=== PATIENT | female | born 1935 | race Caucasian/White ===

== ENCOUNTER 2021-03-10 23:26 | Inpatient (IN) | payer MEDICARE, OTHER ==
[~2021-03-10] VITALS: Ht 154.9 cm; Wt 49.0 kg
[~2021-03-10 23:26] MED LIST: ASPIR 8181 MG PO; ASPIRIN CHEWABL81 MG PO; CEFDINIR250 MG/5 M PO; CLARITIN10 MG PO; DIFLUCAN 100MG100 MG NG; DUONEB 2.5-0.5M1 AMP NEB; ELIQUIS5 MG NG; JEVITY 1.2 CA1000 ML JT; JEVITY 1.5 CA1500 ML JT; LINZESS145 MCG PO; LOPRESSOR25 MG NG; LOPRESSOR25 MG PO; MELATONIN5 M2 PO; NORVASC2.5 MG PO; RANITIDINE15 MG/1 ML PO; SEROQUEL 25MG T25 MG PO; SULFATRIM PEDI473 ML PO; TRAZODONE 50MG50 MG PO; VALPROIC ACID1 ML PO
[2021-03-11 01:43] LABS: AMPHETAMINES NEGATIVE (NEGATIVE); BARBITURATES NEGATIVE (NEGATIVE); BILIRUBIN NEGATIVE (NEGATIVE); BLOOD NEGATIVE Ery/uL (NEGATIVE); CLARITY CLEAR (CLEAR); COLOR YELLOW (YELLOW); ECSTASY (MDMA) NEGATIVE (NEGATIVE); GLUCOSE (U) NORMAL (NORMAL); LEUKOCYTES NEGATIVE Leu/uL (NEGATIVE); MARIJUANA (THC) NEGATIVE (NEGATIVE); METHADONE NEGATIVE (NEGATIVE); NITRITE NEGATIVE (NEGATIVE); OPIATES NEGATIVE (NEGATIVE); OXYCODONE NEGATIVE (NEGATIVE); PROTEIN 1+ mg/dL (NEGATIVE); SPECIFIC GRAVITY >=1.030 (1.001-1.030); UROBILINOGEN 0.2 mg/dL (0.2-1.0)
[2021-03-11 01:50] LABS: AMORPHOUS URATES CRYSTALS LARGE; BACTERIA TRACE; SQUAMOUS EPITHELIAL CELLS RARE
[2021-03-11 02:18] LABS: ALBUMIN 3.2 g/dL (3.4-5.0); BILIRUBIN - TOTAL 0.7 mg/dL (0.2-1.0); CREATININE 1.78 mg/dL (0.51-0.95); GLOBULIN (CALCULATION) 3.5 g/dL; POTASSIUM 4.7 mmol/L (3.5-5.1); TOTAL PROTEIN 6.7 g/dL (6.4-8.2)
[2021-03-11 02:28] LABS: BASOPHIL 0.2 % (0-2); EOSINOPHIL 0 % (0-7); HCT 43.2 % (37.0-47.0); HGB 14.7 g/dl (12.5-16.0); LYMPHOCYTE 4.8 % (15-48); MCH 32.7 pg (25.0-31.0); MCV 96.2 fL (78.0-100.0); MONOCYTE 5.3 % (0-12); MPV 9.8 fL (6.0-9.5); NEUTROPHIL 89.3 % (41-80); NRBC 0; PLT 286 K/uL (150-400); RBC 4.49 M/uL (4.20-5.40); RDW 13.1 % (11.5-14.0); WBC 16.9 K/uL (4.0-10.5)
[2021-03-11 02:40] LABS: INR 1.11 (0.9-1.2); PROTHROMBIN TIME 13.6 SECONDS (11.4-13.6)
[2021-03-11 03:02] LABS: LACTIC ACID 5.9 mmol/L (0.4-1.9)
[2021-03-12 06:12] LABS: BASOPHIL 0.3 % (0-2); EOSINOPHIL 0.7 % (0-7); HCT 31.5 % (37.0-47.0); LYMPHOCYTE 12.3 % (15-48); MCH 32.9 pg (25.0-31.0); MCHC 34.9 g/dL (32.0-36.0); MCV 94.3 fL (78.0-100.0); MONOCYTE 8.3 % (0-12); MPV 9.8 fL (6.0-9.5); NEUTROPHIL 78.2 % (41-80); NRBC 0; PLT 199 K/uL (150-400); RBC 3.34 M/uL (4.20-5.40); RDW 13.1 % (11.5-14.0); WBC 8.8 K/uL (4.0-10.5)
[2021-03-12 07:06] LABS: ALBUMIN 2.4 g/dL (3.4-5.0); CREATININE 1.04 mg/dL (0.51-0.95); GLOBULIN (CALCULATION) 2.8 g/dL; POTASSIUM 2.9 mmol/L (3.5-5.1); TOTAL PROTEIN 5.2 g/dL (6.4-8.2)
[2021-03-12 07:07] LABS: BILIRUBIN - TOTAL 0.8 mg/dL (0.2-1.0); MAGNESIUM 1.7 mg/dL (1.8-2.4)
[2021-03-13 05:43] LABS: BASOPHIL 0.3 % (0-2); EOSINOPHIL 1.1 % (0-7); HCT 29.7 % (37.0-47.0); HGB 10.1 g/dl (12.5-16.0); MCH 32.5 pg (25.0-31.0); MCV 95.5 fL (78.0-100.0); MONOCYTE 8.3 % (0-12); MPV 9.8 fL (6.0-9.5); NEUTROPHIL 76.7 % (41-80); NRBC 0; PLT 194 K/uL (150-400); RBC 3.11 M/uL (4.20-5.40); RDW 13.2 % (11.5-14.0); WBC 7.1 K/uL (4.0-10.5)
[2021-03-13 06:53] LABS: CREATININE 0.78 mg/dL (0.51-0.95)
[2021-03-13 06:54] LABS: ALBUMIN 2.2 g/dL (3.4-5.0); BILIRUBIN - TOTAL 0.7 mg/dL (0.2-1.0); POTASSIUM 3.4 mmol/L (3.5-5.1); TOTAL PROTEIN 5.2 g/dL (6.4-8.2)
[2021-03-13 06:55] LABS: PHOSPHORUS 1.5 mg/dL (2.6-4.7)
[2021-03-14 06:17] LABS: BASOPHIL 0.3 % (0-2); HCT 29.2 % (37.0-47.0); HGB 10.4 g/dl (12.5-16.0); LYMPHOCYTE 15.9 % (15-48); MCH 33.2 pg (25.0-31.0); MCHC 35.6 g/dL (32.0-36.0); MCV 93.3 fL (78.0-100.0); MONOCYTE 11.8 % (0-12); MPV 9.6 fL (6.0-9.5); NEUTROPHIL 68.5 % (41-80); NRBC 0; PLT 195 K/uL (150-400); RBC 3.13 M/uL (4.20-5.40); RDW 12.9 % (11.5-14.0); WBC 6.6 K/uL (4.0-10.5)
[2021-03-14 07:15] LABS: ALBUMIN 2.1 g/dL (3.4-5.0); BILIRUBIN - TOTAL 0.9 mg/dL (0.2-1.0); CREATININE 0.72 mg/dL (0.51-0.95); GLOBULIN (CALCULATION) 2.6 g/dL; MAGNESIUM 1.6 mg/dL (1.8-2.4); PHOSPHORUS 1.6 mg/dL (2.6-4.7); POTASSIUM 4.4 mmol/L (3.5-5.1); TOTAL PROTEIN 4.7 g/dL (6.4-8.2)
[2021-03-15 05:09] LABS: BASOPHIL 0.6 % (0-2); EOSINOPHIL 6.4 % (0-7); HCT 31.5 % (37.0-47.0); HGB 10.9 g/dl (12.5-16.0); LYMPHOCYTE 17.1 % (15-48); MCH 32.5 pg (25.0-31.0); MCHC 34.6 g/dL (32.0-36.0); MONOCYTE 10.7 % (0-12); MPV 9.6 fL (6.0-9.5); NEUTROPHIL 64.7 % (41-80); NRBC 0; PLT 235 K/uL (150-400); RBC 3.35 M/uL (4.20-5.40); WBC 6.3 K/uL (4.0-10.5)
[2021-03-15 05:39] LABS: CREATININE 0.7 mg/dL (0.51-0.95); POTASSIUM 4.6 mmol/L (3.5-5.1)
[2021-03-15 05:40] LABS: ALBUMIN 2.1 g/dL (3.4-5.0); BILIRUBIN - TOTAL 0.6 mg/dL (0.2-1.0); GLOBULIN (CALCULATION) 3.1 g/dL; MAGNESIUM 2.4 mg/dL (1.8-2.4); PHOSPHORUS 4.4 mg/dL (2.6-4.7); TOTAL PROTEIN 5.2 g/dL (6.4-8.2)
--- NOTE | 2021-03-16 09:34 | NUR ---
RD consult for EN support vis DHT. NG placed 03/15; tube pulled out by patient therefore unable to start TF. Discussed events with LAKESHA Melendrez; [facility]. will follow.
--- NOTE | 2021-03-16 10:00 | NUR ---
0930 CALLED INTO THE ROOM BY FAMILY AND REPORTS THAT THE PATIENT HAS PULLED OUT THE FEEDING TUBE FROM HER NOSE. 35 DR. CARMICHAEL WAS NOTIFED AND REQUEST THIS NURSE TO CALL THE POA AND LET THEM KNOW ABOUT THE TUBE BEING PULLED OUT AND WHAT OTHER INSTUCTIONS THEY WOULD LIKE TO BE DONE. 939 MARLEN GONZALEZ THE POA WAS NOTIFED AND EXPLAINED THAT THE FEEDING TUBE HAD BEEN PULLED PUT. MS. GONZALEZ WOULD LIKE TO TALK TO ROXANNE MILAN THE CAREGIVER FOR THE PATIENT AND THE NURSE ON A 3 WAY CALL. 45 MARLEN GONZALEZ AND ROXANNE MILAN AND THE NURSE IN THE ROOM ON A THREE WAY CALL, THEY DISCUSSED THE REPLACING THE FEEDING TUBE AND THEY WANT IT BACK IN AND TO BE SENT HOME WITH IT. 50 DR. CARMICHAEL NOTIFED OF THE PLAN TO REPLACE THE TUBE. WILL WRITE THE ORDER TO REPLACE THE FEEDING TUBE AND TO BE DISCHARGED.
--- NOTE | 2021-03-16 14:47 | NUR ---
FAMILY REQUESTS [facility] [place]. TC TO [place] WITH CARETENDERS, ADVISED HER THAT [facility] [address] WITH HER CAREGIVER, ROXANNE OLIVEIRA PHONE NUMBER IS [phone]. PT. HAS HER FEEDING PUMP AND FEEDS.
--- NOTE | 2021-03-16 16:46 | NUR ---
1513 DOUBOFF FEEDING TUBE WAS REPLACED TO THE LEFT NARE WITHOUT ANY PROBLEMS. SECURED IN PLACE AND DR. CARMICHAEL WAS NOTIFED TO ORDER THE KUB. 1520 KUB HAS BEEN DONE WAITING THE RESULTS OF PLACEMENT OF THE FEEDING TUBE. 1545 FEDDING TUBE IS IN THE CORRECT PLACE DR. CARMICHAEL NOTIFED OF THE RESULTS. 1551 WIRE WAS REMOVED AND FLUSHED WITH 30 ML TAP WATER WITH OUT ANY PROBLEMS. PLACEMENT STILL IN THE CORRECT POSITION. DR. CARMICHAEL NOTIFED NEW ORDERS TO START TUBE FEEDINGS. JEVITY 1.5 AT 10 ML FOR 8 HOURS THEN INCREASED BY 10 ML EVERY 8 HOURS UNTIL A GOAL OF 40ML HR IS REACHED.
[2021-03-16] MEDS ORDERED: AUGMENTIN 875-1 EACH PO (17:21)
--- NOTE | 2021-03-16 18:54 | NUR ---
1834 DISCHARGE INSTRUCTION WHERE GIVEN VIA TELEPHONE TO ROXANNE MILAN AND AND MARLEN HERRERA). BOTH VOICED UNDERSTANDING OF THE DISCHARGE INSTRUCTIONS AND THE TEACHING INFORMATION ABOUT THE NEW NEDICATIONS AND CARETNEDERS NOTIFED OF THE DISCHARGE HOME.
== END 2021-03-16 23:59 | disposition home health service (06) | DRG 871 ==
LOC: FER 23:26 → FTCU 03-11 05:39 → FICU 03-11 05:39 → FTCU 03-14 09:32
PROVIDERS: Emergency Medicine; Internal Medicine; ADMIT Internal Medicine
PROC: 3E033XZ Introduction of Vasopressor into Peripheral Vein, Percutaneous Approach (ICD-10-PCS; principal; 2021-03-11)
DX: A41.9 Sepsis, unspecified organism (principal); G93.41 Metabolic encephalopathy; I21.A1 Myocardial infarction type 2; R57.1 Hypovolemic shock; J69.0 Pneumonitis due to inhalation of food and vomit; J18.9 Pneumonia, unspecified organism; N17.9 Acute kidney failure, unspecified; K56.49 Other impaction of intestine; R65.20 Severe sepsis without septic shock; Z51.5 Encounter for palliative care; Z66 Do not resuscitate; Z20.822 Contact with and (suspected) exposure to COVID-19; I95.9 Hypotension, unspecified; K80.20 Calculus of gallbladder without cholecystitis without obstruction; Z96.652 Presence of left artificial knee joint; F03.90 Unspecified dementia, unspecified severity, without behavioral disturbance, psychotic disturbance, mood disturbance, and anxiety; I12.9 Hypertensive chronic kidney disease with stage 1 through stage 4 chronic kidney disease, or unspecified chronic kidney disease; N18.9 Chronic kidney disease, unspecified; M19.90 Unspecified osteoarthritis, unspecified site; K58.9 Irritable bowel syndrome, unspecified; E86.1 Hypovolemia; E86.0 Dehydration; K44.9 Diaphragmatic hernia without obstruction or gangrene; R62.7 Adult failure to thrive; Z88.0 Allergy status to penicillin; Z88.1 Allergy status to other antibiotic agents; Z87.891 Personal history of nicotine dependence; Z98.890 Other specified postprocedural states; Z86.711 Personal history of pulmonary embolism; Z79.899 Other long term (current) drug therapy; Z68.20 Body mass index [BMI] 20.0-20.9, adult
CPT/HCPCS: 36415; 36600; 70450; 71045; 74018; 76705; 78226; 80053; 80305; 81001; 82550; 82607; 82803; 83605; 83735; 83880; 84100; 84145; 84484; 85025; 85610; 87040; 92526; 93005; 94640; 94667; 94668; A9537; J0456; J1650; J1956; J2250; J2543; J3475; J3480; J7030; J7040; J7050; J7060; U0002